=== PATIENT | male | born 1995 | race Caucasian/White ===

== ENCOUNTER 2018-10-31 21:47 | Emergency (ER) | payer OTHER ==
[~2018-10-31] VITALS: Ht 175.3 cm; Wt 59.9 kg
[~2018-10-31 21:47] MED LIST: AMOCLA500 PO; CODACEE120 PO; CRUTCH3 USE; HYDACE5 PO; IBUP200 PO; MULTCH PO; NAPR500 PO; PROM25 PO; RXCODACESY PO; RXERYTOPTH OP; [UNRECOGNIZED DRUG - OTHER]
[2018-11-01] MEDS ORDERED: Lotrisone Cream45 GM TOP (00:11)
== END 2018-11-01 00:29 | disposition home or self-care (01) ==
LOC: ER 21:47
DX: L30.9 Dermatitis, unspecified (principal); R01.1 Cardiac murmur, unspecified
CPT/HCPCS: 99282

== ENCOUNTER → 2021-06-19 | Outpatient (CLI) | payer OTHER ==
[~2021-06-19] MED LIST changes: +Lotrisone Cream45 GM TOP
[2021-06-21 03:11] LABS: CHLAMYDIA TRACHOMATIS, NAA Negative (Negative)
== END | disposition home or self-care (01) ==
LOC: LAB SHORT 11:07
PROVIDERS: Physician Assistant Medical
DX: R36.9 Urethral discharge, unspecified (principal)
CPT/HCPCS: 87491; 87591

== ENCOUNTER 2023-04-19 17:22 | Emergency (ER) | payer OTHER ==
[~2023-04-19] VITALS: Ht 175.3 cm; Wt 59.0 kg
[2023-04-19 18:00] VITALS: BP 138/89
[2023-04-19] MEDS ORDERED: AMOCLA875 PO (19:53)
== END 2023-04-19 20:00 | disposition home or self-care (01) ==
LOC: ER 17:22
DX: K04.7 Periapical abscess without sinus (principal)
CPT/HCPCS: 41800; 99282-25; A9270

== ENCOUNTER 2023-07-20 21:21 | Emergency (ER) | payer OTHER ==
[~2023-07-20] VITALS: Ht 175.3 cm; Wt 59.0 kg
[~2023-07-20 21:21] MED LIST changes: +AMOCLA875 PO
[2023-07-20 21:51] VITALS: BP 164/80
[2023-07-20] MEDS ORDERED: AMOCLA875 PO (23:27)
[2023-07-20] MEDS ORDERED: Amoxicillin/Clavulanate K 875 MG Tab PO ONE (23:30)
== END 2023-07-20 23:33 | disposition home or self-care (01) ==
LOC: ER 21:21
DX: K04.7 Periapical abscess without sinus (principal)
CPT/HCPCS: 99282; A9270